=== PATIENT | female | born 1990 | race African-American/Black ===

== ENCOUNTER 2024-03-13 11:27 | Emergency (ER) | payer BC ==
[2024-03-13] MEDS ORDERED: predniSONE 20 MG TAB ONE (11:53)
[2024-03-13] MEDS ORDERED: Ketorolac Tromethamine 30 MG (1 mL) VIAL ONE (11:53)
== END 2024-03-13 13:18 | disposition home or self-care (01) ==
LOC: ERS 11:27
DX: G56.00 Carpal tunnel syndrome, unspecified upper limb (principal); F17.210 Nicotine dependence, cigarettes, uncomplicated; Z55.6 Problems related to health literacy
CPT/HCPCS: 36416; 96372; 99284; J1885; J7512